=== PATIENT | female | born 1985 | race Caucasian/White ===

== ENCOUNTER 2019-08-17 03:19 | Emergency (ER) | payer OTHER, SELFPAY ==
[2019-08-17 03:19] VITALS: BP 114/72; PULSE 105; RESP 20; TEMP 36.8; O2SAT 100; BMI 31.1
--- NOTE | 2019-08-17 03:23 | EKG12_ITS ---
Test Reason : CP Blood Pressure : / mmHG Vent. Rate : 093 BPM Atrial Rate : 093 BPM P-R Int : 152 ms QRS Dur : 096 ms QT Int : 374 ms P-R-T Axes : 054 057 039 degrees QTc Int : 465 ms Normal sinus rhythm Normal ECG Confirmed by SHIVAM MCKEON, TEODORO ([id number]), newspaper editor SERA AMBRIZ ([id number]) on 08/19/2019 1:39:44 PM Referred By: NITZA Confirmed By:TEODORO LANGLEY MD
--- NOTE | 2019-08-17 04:03 | ED.VIS.GEN ---
History of Present Illness Chief Complaint: Chest Pain Informant: Patient Onset: Today Context: Sudden Onset Timing: Continuous Current Severity: Mild Maximum Severity: Moderate Narrative: The patient is an otherwise healthy 33-year-old female with no significant medical history that presents to the emergency department with chest tightness and dyspnea. The patient states that she had pain between her shoulder blades that woke her from sleep. She states that it radiated around her anterior chest like a band. She states she felt nauseated. She then had 2 episodes of loose diarrhea. She states that she is felt very anxious with this. She does have family history of heart disease, but not until the age of 50. The patient is otherwise healthy. She states she has been mildly nauseated, but the pain has significantly subsided. She did notice some pain when she was taking deep breaths. She denies any fevers or chills. She has no history of pulmonary embolus. She has no history of coronary vascular disease. Prior similar symptoms: No Recent Illness/Hospitalization: No Past Medical History - Allergies and Home Meds Allergies/Adverse Reactions: Allergies shellfish derived Allergy (Mild, Verified 04/01/17 12:18) [facility] Primary Care Physician: Nicolasa Salas MD [Primary Care Provider] - Prior records reviewed: Yes Past Medical History: None Surgical History: no surgical history Smoking Status: Never smoker Review of Systems General: Denies: Chills, Fever, Sweats Eyes: Denies: Visual changes - bilaterally, Diplopia ENT: Denies: Rhinorrhea, Sore throat Cardiovascular: Reports: Chest pain. Denies: Palpitations Respiratory: Denies: Dyspnea, Cough, Dyspnea on exertion Gastrointestinal: Reports: Nausea, Diarrhea. Denies: Abdominal pain, Vomiting, Melena, Hematochezia Genitourinary: Denies: Dysuria, Hematuria, Frequency Musculoskeletal: Denies: Back pain, Extremity Pain Skin: Denies: Rash, Wounds Neurological: Denies: Headache, Weakness, Numbness Physical Exam Vital Signs/Narrative: Vital Signs Temp Pulse Resp BP Pulse Ox 08/17/19 03:19 98.2 F 105 H 20 H 114/72 100 Inital Vital Signs reviewed: Yes General: Well nourished, Well developed, No Acute Distress Head: Normocephalic, Atraumatic Eyes: Perrl, EOMI ENT: Moist mucous membranes, No rhinorrhea Neck: Supple, Nontender Cardiovascular: Regular rate, Regular rhythm, No murmurs Respiratory: No distress, CTA bilaterally, Chest nontender Abdomen: Soft, Nontender, Nondistended, Normal bowel sounds Back: Nontender, Normal Inspection Extremities: Nontender, No edema Skin: Normal color, No rash Neurological: Alert, Oriented x3, Cranial nerves II-XII grossly intact, Normal Strength, Normal Sensation Psychological: Normal affect, Normal Mood Diagnostic/Tx/Re-eval Clinical Impression(s) from Imaging Studies Chest X-Ray 08/17/19 04:05 IMPRESSION: Normal x-ray examination of the chest. Electronically Signed: Bola Stephens MD at 4:22 EDT , Service support , Abnormal Lab Results 08/17/19 08/17/19 08/17/19 03:55 03:58 03:58 WBC 9.1 RBC 4.48 Hgb 14.3 Hct 40.6 MCV 90.6 MCH 31.9 MCHC 35.2 RDW Std Deviation 39.5 RDW Coeff of Baldo 11.9 Plt Count 316 MPV 9.9 Immature Gran % (Auto) 0.300 Neut % (Auto) 62.3 Lymph % (Auto) 22.8 [place] % (Auto) 6.6 Eos % (Auto) 7.3 H Baso % (Auto) 0.7 Absolute Neuts (auto) 5.7 Absolute Lymphs (auto) 2.08 Nucleated RBC % 0 D-Dimer Quant (PE/DVT) 0.29 Sodium Potassium Chloride Carbon Dioxide Anion Gap BUN Creatinine Estim Creat Clear Calc Est GFR (MDRD) Af Amer Est GFR (MDRD) Non-Af BUN/Creatinine Ratio Glucose Calcium Total Bilirubin AST ALT Alkaline Phosphatase Troponin I Total Protein Albumin Globulin Albumin/Globulin Ratio Lipase Urine Test Negative 08/17/19 03:58 WBC RBC Hgb Hct MCV MCH MCHC RDW Std Deviation RDW Coeff of Baldo Plt Count MPV Immature Gran % (Auto) Neut % (Auto) Lymph % (Auto) [place] % (Auto) Eos % (Auto) Baso % (Auto) Absolute Neuts (auto) Absolute Lymphs (auto) Nucleated RBC % D-Dimer Quant (PE/DVT) Sodium 139 Potassium 3.6 Chloride 108 H Carbon Dioxide 23.0 Anion Gap 8 BUN 14 Creatinine 0.83 Estim Creat Clear Calc 82.47 Est GFR (MDRD) Af Amer 100 Est GFR (MDRD) Non-Af 83 BUN/Creatinine Ratio 16.8 Glucose 119 H Calcium 9.2 Total Bilirubin 0.30 AST 19 ALT 36 Alkaline Phosphatase 63 Troponin I < 0.015 Total Protein 7.6 Albumin 3.9 Globulin 3.7 Albumin/Globulin Ratio 1.1 Lipase 123 Urine Test - Rhythm Strip Rhythm Strip: Sinus Rhythm Rate: 80 Ectopy: None - EKG Initial EKG Interpretation: Sinus Rhythm, No Acute Injury Pattern Prior: Unchanged - Medical Decision Making The patient presents with tightness bandlike across her chest with some radiation between her shoulder blades and nausea. She is now feeling improved. EKG was obtained on patient arrival. Was sinus rhythm without acute ischemia. Chest x-ray was also unremarkable. I did obtain a d-dimer with her history of dyspnea. This was negative. Screening labs including cardiac enzymes and liver functions were also normal. At this point, I do not have a great cause for the cough etiology of her pain. However, based on her unremarkable work-up and the fact she is symptom-free, along with a lack of risk factor, I do feel that she is safe for outpatient therapy. She is comfortable with this plan of care and will be discharged. Impression 1. Atypical chest pain ED Disposition - Plan for ED Patient: Instructions: ED Chest Pain Atypical Unkn Cause Prescriptions: Ondansetron [Zofran Odt] 4 mg PO Q8H PRN PRN #10 tab PRN Reason: Nausea Prescription Printed Referrals: Nicolasa Salas MD [Primary Care Provider] -
--- NOTE | 2019-08-17 04:05 | RAD_ITS ---
STUDY: X-RAY CHEST REASON FOR EXAM: Female, 33 years old. CHEST PAIN TECHNIQUE: Frontal view COMPARISON: None. FINDINGS: The lungs are clear and expanded. There is no demonstrated pleural abnormality. Normal size heart. Normal mediastinum and alyson. Normal visualized pulmonary arteries. Normal visualized aortic arch and descending thoracic aorta. Normal visualized thoracic spine. Normal visualized ribs, clavicles, and shoulders. There is no demonstrated abnormality of the visualized soft tissue structures of the upper abdomen. RAD/Chest 1 View (Portable) IMPRESSION: Normal x-ray examination of the chest. Electronically Signed: Bola Stephens MD at 4:22 EDT , Service support ,
[2019-08-17] MEDS: Ondansetron 4 MG/2 ML Vial IV (04:09)
[2019-08-17 04:11] LABS: Absolute Lymphocyte Count 2.08 X10^3/uL (0.83-4.51); Absolute Neutrophil Count 5.7 X10^3/uL (2.0-7.7); Basophil# 0.06 X10^3/uL; Basophil% 0.7 % (0-1); Eosinophil# 0.67 X10^3/uL; Eosinophils% 7.3 % (0-5); Hematocrit 40.6 % (37-47); Hemoglobin 14.3 g/dL (12.0-15.0); Lymphocyte # 2.08 X10^3/ul (4.0); Lymphocyte % 22.8 % (19-41); Mean Corp Hgb Conc 35.2 g/dL (32-36); Mean Corpuscular Hgb 31.9 pg (27.0-32.0); Mean Corpuscular Volume 90.6 fL (81-99); Mean Platelet Vol. 9.9 fl (6.2-12.0); Monocyte% 6.6 % (0-10); NRBC Flagged by Analyzer 0 % (0-5); Neutrophil % 62.3 % (47-70); Platelet Count 316 K/mm3 (150-450); RBC Distribution Width CV 11.9 % (11.6-14.6); RBC Distribution Width SD 39.5 fl (35.1-43.9); Red Blood Count 4.48 M/mm3 (4.2-5.4); White Blood Count 9.1 K/mm3 (4.4-11.0)
[2019-08-17 04:21] LABS: D-Dimer Quantitative (DVT/PE) 0.29 FEU/ug/m (0.27-0.49)
[2019-08-17 04:25] LABS: Internal QC Validated? YES +Cl - CLEAR BKGD; Pregnancy, Urine Negative Negative
[2019-08-17 04:31] LABS: ALB/GLOB Ratio 1.1 RATIO (0.9-2.4); AST(SGOT) 19 U/L (15-37); Alanine Aminotransfer ALT/SGPT 36 U/L (13-56); Albumin, Serum 3.9 g/dL (3.2-5.0); Alkaline Phosphatase 63 U/L (45-117); Anion Gap 8 (5-15); BUN 14 mg/dL (7-18); BUN/Creat Ratio 16.8 RATIO (10-20); Calcium,Total 9.2 mg/dL (8.5-10.1); Chloride 108 mmol/L (98-107); Creatinine, Serum 0.83 mg/dL (0.55-1.02); EST Glomerular Filtration Rate 83 mL/min (>60); Est Glom Filt Rate - Afr Amer 100 mL/min (>60); Estimated Creatinine Clearance 82.47 ml/min; Globulin 3.7 g/dL (2.2-4.2); Glucose 119 mg/dL (74-106); Lipase 123 U/L (73-393); Potassium 3.6 mmol/L (3.5-5.1); Protein, Total 7.6 g/dL (6.4-8.2); Sodium Level 139 mmol/L (136-145)
[2019-08-17 04:50] VITALS: BP 112/72; PULSE 79; RESP 14; O2SAT 98
== END 2019-08-17 04:51 | disposition home or self-care (01) ==
LOC: ED 03:57
PROVIDERS: Emergency Provider Emergency Medicine; PCP Internal Medicine
DX: R07.89 Other chest pain (principal); R06.00 Dyspnea, unspecified; R11.0 Nausea; R19.7 Diarrhea, unspecified; Z82.49 Family history of ischemic heart disease and other diseases of the circulatory system
CPT/HCPCS: 71045; 80053; 81025; 83690; 84484; 85025; 85379; 93005; 96374; 99285; J7040; A4216; J2405

== ENCOUNTER 2021-03-30 07:16 | Outpatient (CLI) | payer BC, SELFPAY ==
--- NOTE | 2021-03-30 07:18 | BI_ITS ---
MAMMOGRAPHY - BILATERAL SCREENING REASON FOR EXAM: Female, 35 years old. Routine annual screening examination. PERTINENT HISTORY: Mother with breast cancer. Grandmother with breast cancer. TECHNIQUE: Digital bilateral breast nilo (3D mammographic acquisition) in the CC and MLO projections. 2-D mediolateral oblique (MLO) and craniocaudad (CC) views of both breasts were obtained. CAD: Full Field Digital Mammography with Computer Added Detection was performed. COMPARISON: None. Baseline examination. FINDINGS: Breast Composition: The breasts are heterogeneously dense, which may obscure small masses. There are no dominant masses or suspicious calcifications. No other significant abnormalities are identified. There has been no significant change since the prior study. BI/SCRN MAMM (CAD)W/NILO BILAT IMPRESSION: Stable bilateral screening mammogram. Yearly follow-up mammogram recommended. (A) ASSESSMENT CATEGORY: BIRADS Category 1: Negative. A letter regarding these results will be sent to the patient by the facility within 30 days. Approximately 10% of breast cancers are not detected by mammography. A normal mammogram should not delay biopsy of a clinically suspicious abnormality. [id number] Electronically Signed: John Doss MD at 8:36 EST , Service support ,
== END 2021-03-30 23:59 | disposition short-term general hospital (02) ==
PROVIDERS: PCP Internal Medicine; Referring Provider Internal Medicine; Visit Provider Internal Medicine
DX: Z12.31 Encounter for screening mammogram for malignant neoplasm of breast (principal); R00.2 Palpitations
CPT/HCPCS: 77063; 77067; 93225; 93226